=== PATIENT | female | born 1955 | race Caucasian/White ===

== ENCOUNTER → 2020-09-16 | Day surgery (SDC) | payer OTHER ==
[~2020-09-16] VITALS: Ht 177.8 cm; Wt 73.5 kg
[~2020-09-16] MED LIST: CELEXA10 MG PO; CITALOPRAM HBR40 MG PO; IBUPROFEN800 MG PO; OMEGA-3 ACID ETH1 GM PO; PROGESTERONE100 MG PO; SYNTHROID75 MC1 PO; ZYRTEC10 M3 PO; [UNRECOGNIZED DRUG - OTHER] PO; [UNRECOGNIZED DRUG - OTHER] PO; [UNRECOGNIZED DRUG - OTHER] PO; [UNRECOGNIZED DRUG - OTHER] PO
[2020-09-16 10:33] LABS: HCT 40.5 % (37.0-47.0); HGB 13.7 g/dl (12.5-16.0); MCH 29.6 pg (25.0-31.0); MCHC 33.8 g/dL (32.0-36.0); MCV 87.5 fL (78.0-100.0); MPV 10.7 fL (6.0-9.5); RBC 4.63 M/uL (4.20-5.40); RDW 11.9 % (11.5-14.0); WBC 3.9 K/uL (4.0-10.5)
[2020-09-16 11:14] LABS: BUN/CREAT RATIO (CALC) 27.5 RATIO; CREATININE 0.8 mg/dL (0.51-0.95); POTASSIUM 3.6 mmol/L (3.5-5.1)
== END | disposition home or self-care (01) ==
LOC: FAS 09:48
PROVIDERS: Specialist
DX: N72 Inflammatory disease of cervix uteri (principal); L28.0 Lichen simplex chronicus; N84.0 Polyp of corpus uteri; N95.0 Postmenopausal bleeding; Z88.8 Allergy status to other drugs, medicaments and biological substances; M81.0 Age-related osteoporosis without current pathological fracture; E03.9 Hypothyroidism, unspecified; E78.5 Hyperlipidemia, unspecified
CPT/HCPCS: 36415; 80048; J0690; J1100; J1885; J2001; J2250; J2405; J2704; J3010; J7120